=== PATIENT | male | born 1945 | race Caucasian/White ===

== ENCOUNTER 2017-04-18 15:19 | Emergency (ER) | payer SELFPAY ==
[2017-04-18 15:36] VITALS: BP 167/65
[2017-04-18] MEDS ORDERED: Tetracaine 0.5% OPTH.SOL 4 ML* 1 DROP BTL BOTH EYES ONE (16:08)
[2017-04-18] MEDS ORDERED: Fluorescein Sodium TOPICAL* 1 MG TEST OPHTHALMIC ONE (16:08)
--- NOTE | 2017-04-18 17:08 | UC ---
Eye Complaint HPI - HPI Summary HPI Summary: Patient presents with complaints of right eye pain following sawdust that got in his eye when sawing stairs earlier today. He states he did attempt to wash it out the best he could. He states he continues to feel as if something is in his eye, it is red, tearing, and painful. He also states that the eye lids are swollen. He states his vision is blurred because of the tearing. - History of Current Complaint Chief Complaint: UCEye Stated Complaint: DUST IN EYES Time Seen by Provider: 04/18/17 16:05 Hx Obtained From: Patient Onset/Duration: Sudden Onset Timing: Constant Severity Initially: Moderate Severity Currently: Moderate Location of Injury: Other - sawdust got in his eye. Character: Sharp Aggravating Factor(s): Light, Blinking Associated Signs And Symptoms: Positive: Photophobia, Drainage (Clear), Swelling Related History: Similar Episode - foreign body - Risk Factors Penetrating Injury Risk Factor: Projectile Globe Rupture Risk Factors: Negative - Allergies/Home Medications Allergies/Adverse Reactions: Allergies Allergy/AdvReac Type Severity Reaction Status Date / Time No Known Allergies Allergy Verified 04/18/17 16:09 PMH/Surg Hx/FS Hx/Imm Hx Previously Healthy: Yes - Surgical History Surgical History: Yes Surgery Procedure, Year, and Place: hernia - Family History Known Family History: Positive: Hypertension - Social History Occupation: Employed Full-time Lives: With Family Alcohol Use: Occasionally Substance Use Type: None Smoking Status (MU): Never Smoked Tobacco Review of Systems Constitutional: Negative Skin: Negative Eyes: Negative ENT: Other - right eye pain, redness, tearing, lid swelling. Respiratory: Negative Cardiovascular: Negative Gastrointestinal: Negative All Other Systems Reviewed And Are Negative: Yes Physical Exam Triage Information Reviewed: Yes Appearance: Pain Distress Vital Signs: Initial Vital Signs Temp 99 F 04/18/17 15:35 Pulse 101 04/18/17 15:35 Resp 16 04/18/17 15:35 BP 167/65 04/18/17 15:35 Pulse Ox 99 04/18/17 15:35 Vital Signs Reviewed: Yes Eyes: Positive: Conjunctiva Clear, Conjunctiva Inflamed ENT Exam: Normal Neck exam: Normal Respiratory Exam: Normal Cardiovascular Exam: Normal Skin Exam: Normal Eye Complaint Course/Dx - Course Course Of Treatment: Patient presents s/o foreign body to right eye eariler today, he irriagated it out prior to arriva;l. I didn't see any foreign body on exam. Tetracaine was instilled into the right eye, and then floresene stain, and there was a corneal abrasion. I recommend that he f/u with the opthamologist tomorrow for recheck. He was discharge home with erythromcin oint , and norco for pain controll. The patient was taken out of work for 2 days. Patient declined an eye patch for comfort and support. discharged home in stable condition. - Differential Dx/Diagnosis Differential Diagnosis/HQI/PQRI: Corneal Abrasion Provider Diagnoses: corneal abrasion Discharge - Discharge Plan Condition: Stable Disposition: HOME Prescriptions: Erythromycin TOPICAL GEL* [Erythromycin OPTH OINT*] 1 applic TOPICAL TID #1 oint Hydrocodone-Acetaminophen [[place] 5-325 mg] 1 tab PO Q6HR PRN #14 tab MDD 4 PRN Reason: corneal abrasion Patient Education Materials: Corneal Abrasion (ED) Forms: *Work Release Referrals: No Primary Care Phys,NOPCP [Primary Care Provider] - Jake Price MD [Medical Doctor] -
== END 2017-04-18 18:08 | disposition home or self-care (01) ==
LOC: UCEAST 15:19
DX: T15.01XA Foreign body in cornea, right eye, initial encounter (principal); S00.251A Superficial foreign body of right eyelid and periocular area, initial encounter; W22.8XXA Striking against or struck by other objects, initial encounter; Y93.H3 Activity, building and construction
CPT/HCPCS: 99212; A9270-GY; G0463

== ENCOUNTER 2019-06-25 13:27 | Emergency (ER) | payer BC, MEDICARE, OTHER ==
[2019-06-25] MEDS ORDERED: Tetracaine 0.5% OPTH.SOL 4 ML* 1 DROP BTL LEFT EYE ONE (13:31)
[2019-06-25] MEDS ORDERED: Fluorescein Sodium TOPICAL* 1 MG TEST STRIP OPHTHALMIC ONE (13:31)
[2019-06-25 13:42] VITALS: BP 134/83
--- NOTE | 2019-06-25 14:02 | UC ---
Eye Complaint HPI - HPI Summary HPI Summary: 73-year-old male comes in with a chief complaint of right thigh pain. Just prior to arrival while at work he feels like he got some sawdust in his right eye. Pain is constant. No complaint of any change in vision. He did wash the eye out while at work with eyedrops. - History of Current Complaint Chief Complaint: UCEye Stated Complaint: FB IN EYE Time Seen by Provider: 06/25/19 13:44 Pain Intensity: 5 - Allergies/Home Medications Allergies/Adverse Reactions: Allergies Allergy/AdvReac Type Severity Reaction Status Date / Time No Known Allergies Allergy Verified 06/25/19 13:42 PMH/Surg Hx/FS Hx/Imm Hx Previously Healthy: Yes GI/ History: Gastroesophageal Reflux - Surgical History Surgical History: Yes Surgery Procedure, Year, and Place: hernia - Family History Known Family History: Positive: Hypertension - Social History Alcohol Use: Occasionally Substance Use Type: None Smoking Status (MU): Never Smoked Tobacco Review of Systems All Other Systems Reviewed And Are Negative: Yes Constitutional: Positive: Negative Skin: Positive: Negative Eyes: Positive: Drainage - RT, Eye Redness - RT Physical Exam Triage Information Reviewed: Yes Appearance: Well-Appearing, No Pain Distress, Well-Nourished Vital Signs: Initial Vital Signs Temp 98 F 06/25/19 13:40 Pulse 105 06/25/19 13:40 Resp 16 06/25/19 13:40 BP 134/83 06/25/19 13:40 Pulse Ox 99 06/25/19 13:40 Vital Signs Reviewed: Yes Eyes: Positive: Conjunctiva Inflamed - RT, Discharge - RT CLEAR, Other: - On fluorescein examination there is uptake just lateral to the pupil in the iris 2 mm x 1 mm. I do not see any foreign body on exam. PERRLA EOMI. Globe is intact. No hyphema. Neck: Positive: Supple Respiratory: Positive: No respiratory distress Musculoskeletal: Positive: Strength Intact, ROM Intact Neurological: Positive: Alert, Muscle Tone Normal Psychological: Positive: Age Appropriate Behavior Skin Exam: Normal Eye Complaint Course/Dx - Course Course Of Treatment: The plan is tobramycin eyedrops and eye rest and follow up with ophthalmology if not improved or worse. - Differential Dx/Diagnosis Provider Diagnosis: Corneal abrasion, right Discharge - Sign-Out/Discharge Documenting (check all that apply): Patient Departure All imaging exams completed and their final reports reviewed: No Studies - Discharge Plan Condition: Stable Disposition: HOME Prescriptions: Tobramycin 0.3% OPHTH.NICO* 1 drop RIGHT EYE Q4H #1 btl Patient Education Materials: Corneal Abrasion (ED) Referrals: Ant Walsh DO [Primary Care Provider] - [facility] [Provider Group] Additional Instructions: FOLLOW UP WITH OPHTHALMOLOGY, [facility], IF NOT COMPLETELY IMPROVED. GET RECHECKED SOONER IF YOUR CONDITION DOES NOT IMPROVE OR WORSENS OR ANY QUESTIONS OR CONCERNS. - Billing Disposition and Condition Condition: STABLE Disposition: Home
== END 2019-06-25 14:05 | disposition home or self-care (01) ==
LOC: UCEAST 13:27
DX: S05.01XA Injury of conjunctiva and corneal abrasion without foreign body, right eye, initial encounter (principal); W22.8XXA Striking against or struck by other objects, initial encounter; Y93.9 Activity, unspecified; Y92.89 Other specified places as the place of occurrence of the external cause; Y99.0 Civilian activity done for income or pay; K21.9 Gastro-esophageal reflux disease without esophagitis
CPT/HCPCS: 99212; A9270-GY; G0463